=== PATIENT | female | born 1950 | race Caucasian/White ===

== ENCOUNTER 2018-11-05 10:20 | Emergency (ER) | payer MEDICARE ==
[~2018-11-05] VITALS: Ht 170.2 cm; Wt 88.6 kg
[2018-11-05 10:26] VITALS: TEMP 97.7
[2018-11-05 11:25] LABS: BASO % 0.5 % (0.0-2.0); EOS % 0.2 % (0-4.0); GRAN # 4.4 (1.4-6.5); GRAN % 79.1 % (42.2-75.2); HEMATOCRIT 44.3 % (37.0-47.0); HEMOGLOBIN 14.5 g/dl (12.5-16.0); LYMPH # 0.7 (1.2-3.4); LYMPH % 12.6 % (20.0-51.0); MEAN CELL VOLUME 83 fl (80.0-100.0); MEAN CORPUSCULAR HEMOGLOBIN 27 pg (27.0-31.0); MEAN CORPUSCULAR HGB CONC 33 g/dl (33.0-37.0); MEAN PLATELET VOLUME 10.1 fl (7.4-10.4); MONO # 0.4 (0.1-0.6); MONO % 7.2 % (1.7-9.3); PLATELET COUNT 137 K/mm3 (130-400); RED BLOOD COUNT 5.36 M/mm3 (4.10-5.30); REDCELL DISTRIBUTION WIDTH-CV 13.4 % (11.5-14.5)
[2018-11-05 11:30] LABS: ALBUMIN 3.7 gm/dL (3.5-5.0); BILIRUBIN,TOTAL 1.1 mg/dL (0.0-1.0); CREATININE, serum 0.69 (0.52-1.25); POTASSIUM 3.2 mmol/L (3.4-5.0); TOTAL PROTEIN 6.8 gm/dL (6.4-8.2)
[2018-11-05 13:40] LABS: COLLECTION METHOD CLEAN CATCH
[2018-11-05 13:49] LABS: MUCOUS Present /lpf; PH 5 (5-8); SQUAMOUS EPITHELIAL 0-2 /hpf; URINE APPEARANCE Clear; URINE BACTERIA None Seen /hpf; URINE BILIRUBIN Negative (NEGATIVE); URINE BLOOD 3+ (NEGATIVE); URINE COLOR Yellow; URINE GLUCOSE Negative (NEGATIVE); URINE KETONE 1+ (NEGATIVE); URINE LEUKOCYTE ESTERASE Negative (NEGATIVE); URINE NITRATE Negative (NEGATIVE); URINE PROTEIN(semi-quant) Negative (NEGATIVE); URINE RBC 0-2 /hpf; URINE UROBILINOGEN Negative (NEGATIVE)
[2018-11-05] MEDS ORDERED: ZOFRAN 4MG T4 MG/TAB PO (15:52)
[2018-11-05] MEDS ORDERED: CIPRO 500MG TA500 MG PO (16:00)
[2018-11-05] MEDS ORDERED: SYNTHROID0.137 MG (16:39)
[2018-11-05] MEDS ORDERED: PRIL40 PO (16:40)
[2018-11-05] MEDS ORDERED: DITROPAN XL10 MG PO (16:41)
[2018-11-05 16:55] VITALS: BP 125/61; PULSE 80
--- NOTE | 2018-11-06 09:51 | NUR ---
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 Reports at convention in [place] last week -- fresh fruit bar w[employer]. ER visit of 11/05 -- started Cipro. Reports diarrhea contiues. Encouraged patient to complete Cipro as prescribed; seek additional medical attention if diarrhea not gone by end of 7 day Rx and / or if feeling more unwell.
== END 2018-11-05 16:55 | disposition home or self-care (01) ==
LOC: COL.ER 10:20
PROVIDERS: Emergency Medicine
DX: K52.9 Noninfective gastroenteritis and colitis, unspecified (principal); R55 Syncope and collapse; E86.0 Dehydration; E87.6 Hypokalemia
CPT/HCPCS: J2405; J2550; J7030